=== PATIENT | female | born 2000 | race Caucasian/White ===

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

== ENCOUNTER 2021-02-17 14:31 | Outpatient (CLI) | payer OTHER, SELFPAY ==
[2021-02-17 15:00] LABS: Basophils % 0.5 %; Eosinophils # 0.1 10^3/uL (0.0-0.8); Eosinophils % 0.8 %; Hematocrit 41.2 % (37.0-47.0); Hemoglobin 13.6 g/dL (11.5-15.3); Lymphocytes # 2.8 10^3/uL (1.5-6.5); Lymphocytes % 47.4 %; Mean Corpuscular Hemoglobin 31.2 pg (28.0-34.0); Mean Corpuscular Volume 94.5 fl (81-99); Mean Platelet Volume 9.9 fL (7.4-10.4); Monocytes # 0.3 10^3/uL (0.2-0.9); Monocytes % 5.7 %; Neutrophils % 45.4 %; Nucleated Red Blood Cells % 0 %; Platelet Count 372 10^3/cmm (130-400); Red Blood Count 4.36 10^6/uL (4.1-5.3); Red Cell Distribution Width 11.3 % (12.1-15.1)
[2021-02-17 15:32] LABS: Free T4 Free Thyroxine 1.19 ng/dL (0.93-1.60); Thyroid Stimulating Hormone 0.74 uIU/mL (0.27-4.20)
[2021-02-17 15:33] LABS: HIV 1 & 2 Antibody Non-Reactive (Non-Reactiv); HIV 1 & 2 Antigen Non-Reactive (Non-Reactiv); Hepatitis C Virus Antibody Non-Reactive (Nonreactive); Rapid Plasma Reagin Syphilis Nonreactive (Nonreactive)
[2021-02-17 15:43] LABS: Alanine Aminotransferase 10 U/L (0-33); Alkaline Phosphatase 47 IU/L (35-105); Anion Gap 16.9 (5-19); Aspartate Amino Transferase 13 U/L (0-32); Blood Urea Nitrogen 5 mg/dL (6-20); Calcium 9.3 mg/dL (8.5-10.5); Carbon Dioxide 23 mmol/L (22-29); Chloride 100 mmol/L (98-107); Chol HDL Ratio 1.94 mg/dL (0.0-4.40); Cholesterol 122 mg/dL (0-200); Globulin 2.7 g/dL (1.3-4.6); Glomerular Filtration Rate 128.8 mL/min (90-130); Glucose 74 mg/dL (65-115); HDL Cholesterol 63 mg/dL (60-100); LDL Cholesterol Calculated 45 mg/dL (50-170); LDL HDL Ratio 0.71 RATIO (0.00-3.22); Osmolality Calculated 278 mOsm/kg (285-295); Potassium 3.9 mmol/L (3.5-5.1); Sodium 136 mmol/L (136-145); Total Bilirubin 0.5 mg/dL (0.15-1.2); Total Protein 7.7 g/dL (6.6-8.7); Triglycerides 69 mg/dL (0-150)
[2021-02-17 16:09] LABS: Estradiol 75.2 pg/mL; Follicle Stimulating Hormone 4.3 mIU/mL
== END 2021-02-17 14:32 | disposition home or self-care (01) ==
PROVIDERS: PCP Nurse Practitioner; Visit Provider Nurse Practitioner
DX: Z00.00 Encounter for general adult medical examination without abnormal findings (principal); N93.9 Abnormal uterine and vaginal bleeding, unspecified; Z76.89 Persons encountering health services in other specified circumstances
CPT/HCPCS: 80053; 80061; 81025; 82670; 83001; 84146; 84439; 84443; 84702; 85025; 86592; 86803; 87491; 87591; 87661; 87806

== ENCOUNTER 2021-02-25 10:15 | Outpatient (CLI) | payer OTHER, SELFPAY ==
[2021-02-25 11:24] LABS: Estradiol 154.5 pg/mL; Follicle Stimulating Hormone 2.1 mIU/mL; HCG Quantitative 87.68 mIU/mL; Prolactin 12.97 ng/mL (4.8-23.3)
== END 2021-02-25 10:16 | disposition home or self-care (01) ==
PROVIDERS: PCP Nurse Practitioner; Visit Provider Nurse Practitioner
DX: N93.9 Abnormal uterine and vaginal bleeding, unspecified (principal)
CPT/HCPCS: 36415; 82670; 83001; 84146; 84702

== ENCOUNTER 2021-03-14 14:23 | Emergency (ER) | payer OTHER, SELFPAY ==
[2021-03-14 14:37] VITALS: BP 112/73; PULSE 65; RESP 16; TEMP 36.8; O2SAT 100; BMI 22.2
--- NOTE | 2021-03-14 14:43 | PC.NURSE ---
Provided urine cup
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
[2021-03-14 18:34] VITALS: BP 111/54; PULSE 62; RESP 17; TEMP 36.8; O2SAT 100
[2021-03-14 18:42] LABS: Add Urine Microscopic? NO; Charge for UA Resulting for Rev
[2021-03-14 18:47] LABS: Blood Urine Neg (Negative); Glucose Urine UA Norm (Normal); Ketones Urine 3+ (Negative); Protein Urine Neg (Negative); Urine Appearance Clear (CLEAR); Urine Color Yellow (Yellow); pH Urine 5 (5-7)
[2021-03-14 18:48] LABS: Bilirubin Urine Neg (Negative); Leukocyte Esterase Urine Negative (Negative); Nitrate Urine Negative (Negative); Urobilinogen Urine Norm (Negative)
[2021-03-14 18:55] LABS: Basophils # 0.1 10^3/uL (0.0-0.1); Basophils % 0.9 %; Eosinophils # 0.1 10^3/uL (0.0-0.8); Eosinophils % 1.2 %; Hematocrit 38.2 % (37.0-47.0); Lymphocytes # 1.5 10^3/uL (1.5-6.5); Lymphocytes % 23.8 %; Mean Corpuscular Hemoglobin 31.6 pg (28.0-34.0); Mean Corpuscular Volume 92.9 fl (81-99); Mean Platelet Volume 9.9 fL (7.4-10.4); Monocytes # 0.6 10^3/uL (0.2-0.9); Monocytes % 8.9 %; Neutrophils # 4.18 10^3/uL (1.8-8.0); Neutrophils % 64.9 %; Nucleated Red Blood Cells % 0 %; Platelet Count 284 10^3/cmm (130-400); Red Blood Count 4.11 10^6/uL (4.1-5.3); White Blood Count 6.4 10^3/uL (4.5-13.0)
[2021-03-14] MEDS: sodium chloride 0.9% 1,000 ML 999 ML IV ×2 (19:14→20:22)
[2021-03-14 19:25] LABS: Alanine Aminotransferase 13 U/L (0-33); Albumin Level 4.5 g/dL (3.5-5.2); Alkaline Phosphatase 39 IU/L (35-105); Anion Gap 17.1 (5-19); Aspartate Amino Transferase 13 U/L (0-32); Blood Urea Nitrogen 6 mg/dL (6-20); Calcium 9.1 mg/dL (8.5-10.5); Carbon Dioxide 23 mmol/L (22-29); Chloride 100 mmol/L (98-107); Globulin 2.3 g/dL (1.3-4.6); Glomerular Filtration Rate 158.9 mL/min (90-130); Glucose 79 mg/dL (65-115); Osmolality Calculated 279 mOsm/kg (285-295); Potassium 4.1 mmol/L (3.5-5.1); Sodium 136 mmol/L (136-145); Total Bilirubin 0.4 mg/dL (0.15-1.2); Total Protein 6.8 g/dL (6.6-8.7)
[2021-03-14 20:16] VITALS: BP 100/61; PULSE 88; RESP 18; O2SAT 98
--- NOTE | 2021-03-14 20:22 | PC.NURSE ---
Pt resting, food and drink given
== END 2021-03-14 21:45 | disposition home or self-care (01) ==
PROVIDERS: Physician Assistant; Emergency Provider Emergency Medicine; PCP Nurse Practitioner
DX: O26.891 Other specified pregnancy related conditions, first trimester (principal); R11.2 Nausea with vomiting, unspecified; Z3A.01 Less than 8 weeks gestation of pregnancy; O99.331 Smoking (tobacco) complicating pregnancy, first trimester; F17.290 Nicotine dependence, other tobacco product, uncomplicated
CPT/HCPCS: 80053; 81003; 84702; 85025; 96360; 96361; 99283; J7030

== ENCOUNTER → 2021-03-17 16:29 | Outpatient (BNVA) | payer OTHER, SELFPAY | PROVIDERS: PCP Nurse Practitioner; Visit Provider Nurse Practitioner Women's Health | DX: Z34.90 Encounter for supervision of normal pregnancy, unspecified, unspecified trimester (principal); Z3A.01 Less than 8 weeks gestation of pregnancy | CPT/HCPCS: 76801; 76817 ==

== ENCOUNTER 2021-03-21 12:21 | Emergency (ER) | payer OTHER, SELFPAY ==
[2021-03-21 12:40] VITALS: BP 99/63; PULSE 63; RESP 16; TEMP 36.9; O2SAT 100; BMI 21.1
[2021-03-21 12:54] VITALS: BP 110/66; PULSE 58; RESP 18; TEMP 36.8; O2SAT 100
[2021-03-21 13:21] VITALS: BP 102/60; PULSE 58; RESP 17; O2SAT 100
[2021-03-21] MEDS: ondansetron 2 mg/ML SDV 2 mL 4 MG IVP (13:24)
[2021-03-21] MEDS: sodium chloride 0.9% 1,000 ML 999 ML IV (13:24)
[2021-03-21 13:39] LABS: Basophils % 0.7 %; Eosinophils % 0.5 %; Hematocrit 38.6 % (37.0-47.0); Hemoglobin 13.5 g/dL (11.5-15.3); Lymphocytes # 1.7 10^3/uL (1.5-6.5); Lymphocytes % 29.4 %; Mean Corpuscular Volume 91.5 fl (81-99); Mean Platelet Volume 9.8 fL (7.4-10.4); Monocytes # 0.4 10^3/uL (0.2-0.9); Monocytes % 6.8 %; Neutrophils # 3.67 10^3/uL (1.8-8.0); Neutrophils % 62.4 %; Nucleated Red Blood Cells % 0 %; Platelet Count 315 10^3/cmm (130-400); Red Blood Count 4.22 10^6/uL (4.1-5.3); White Blood Count 5.9 10^3/uL (4.5-13.0)
[2021-03-21 14:03] LABS: Specific Gravity, Urine 1.015 (1.005-1.030); Urine Appearance Cloudy (CLEAR); Urine Color Yellow (Yellow); pH Urine 9 (5-7)
[2021-03-21 14:04] LABS: Add Urine Culture? No; Add Urine Microscopic? YES; Amorphous Sediment Urine 2+ /hpf; Bacteria Urine TRACE /hpf; Bilirubin Urine Neg (Negative); Blood Urine Neg (Negative); Glucose Urine UA Norm (Normal); Ketones Urine 1+ (Negative); Leukocyte Esterase Urine Negative (Negative); Nitrate Urine Negative (Negative); Protein Urine Neg (Negative); Urobilinogen Urine Norm (Negative)
--- NOTE | 2021-03-21 14:11 | PC.NURSE ---
Pt PO challenge is Successful. Provider aware and pt is attempting to eat a cracker.
[2021-03-21 14:12] VITALS: BP 112/69; PULSE 65; RESP 17; O2SAT 100
[2021-03-21 14:14] LABS: Alanine Aminotransferase 9 U/L (0-33); Albumin Level 4.7 g/dL (3.5-5.2); Alkaline Phosphatase 37 IU/L (35-105); Anion Gap 14.9 (5-19); Aspartate Amino Transferase 10 U/L (0-32); Blood Urea Nitrogen 5 mg/dL (6-20); Calcium 8.5 mg/dL (8.5-10.5); Carbon Dioxide 24 mmol/L (22-29); Chloride 100 mmol/L (98-107); Globulin 2.2 g/dL (1.3-4.6); Glomerular Filtration Rate 205.6 mL/min (90-130); Glucose 80 mg/dL (65-115); Lipase 35 U/L (13-60); Osmolality Calculated 276 mOsm/kg (285-295); Potassium 3.9 mmol/L (3.5-5.1); Sodium 135 mmol/L (136-145); Total Bilirubin 0.6 mg/dL (0.15-1.2); Total Protein 6.9 g/dL (6.6-8.7)
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
[2021-03-21 15:17] VITALS: BP 108/64; PULSE 72; RESP 17; TEMP 36.7; O2SAT 99
== END 2021-03-21 15:18 | disposition home or self-care (01) ==
PROVIDERS: Emergency Provider Emergency Medicine; PCP Nurse Practitioner
DX: O26.91 Pregnancy related conditions, unspecified, first trimester (principal); R11.2 Nausea with vomiting, unspecified; O99.331 Smoking (tobacco) complicating pregnancy, first trimester; F17.290 Nicotine dependence, other tobacco product, uncomplicated; Z3A.01 Less than 8 weeks gestation of pregnancy
CPT/HCPCS: 80053; 81001; 83690; 84702; 85025; 96361; 96374; 96375; 99284; J2405; J3411; J7030

== ENCOUNTER 2021-03-29 11:48 | Emergency (ER) | payer OTHER, SELFPAY ==
[2021-03-29 12:01] VITALS: BP 111/73; PULSE 81; RESP 18; TEMP 36.1; O2SAT 98
[2021-03-29 12:34] LABS: Add Urine Microscopic? NO; Charge for UA Resulting for Rev
[2021-03-29 12:48] LABS: Urine Appearance Hazy (CLEAR); Urine Color Yellow (Yellow); pH Urine 7 (5-7)
[2021-03-29 12:52] LABS: Bilirubin Urine Neg (Negative); Blood Urine Neg (Negative); Glucose Urine UA Norm (Normal); Ketones Urine 1+ (Negative); Leukocyte Esterase Urine Negative (Negative); Nitrate Urine Negative (Negative); Protein Urine Neg (Negative); Urobilinogen Urine 1 mg/dL (Negative)
[2021-03-29 16:55] LABS: Basophils % 0.5 %; Eosinophils % 0.4 %; Hematocrit 40.3 % (37.0-47.0); Hemoglobin 13.3 g/dL (11.5-15.3); Lymphocytes % 24.1 %; Mean Corpuscular Hemoglobin 30.8 pg (28.0-34.0); Mean Corpuscular Volume 93.3 fl (81-99); Mean Platelet Volume 9.9 fL (7.4-10.4); Monocytes # 0.4 10^3/uL (0.2-0.9); Neutrophils # 5.72 10^3/uL (1.8-8.0); Neutrophils % 69.8 %; Nucleated Red Blood Cells % 0 %; Platelet Count 325 10^3/cmm (130-400); Red Blood Count 4.32 10^6/uL (4.1-5.3); Red Cell Distribution Width 11.1 % (12.1-15.1); White Blood Count 8.2 10^3/uL (4.5-13.0)
[2021-03-29 17:17] LABS: Alanine Aminotransferase 10 U/L (0-33); Albumin Level 4.8 g/dL (3.5-5.2); Alkaline Phosphatase 34 IU/L (35-105); Anion Gap 14.3 (5-19); Aspartate Amino Transferase 12 U/L (0-32); Blood Urea Nitrogen 6 mg/dL (6-20); Calcium 9.1 mg/dL (8.5-10.5); Carbon Dioxide 23 mmol/L (22-29); Chloride 104 mmol/L (98-107); Globulin 2.4 g/dL (1.3-4.6); Glomerular Filtration Rate 203.5 mL/min (90-130); Glucose 78 mg/dL (65-115); Osmolality Calculated 280 mOsm/kg (285-295); Potassium 4.3 mmol/L (3.5-5.1); Sodium 137 mmol/L (136-145); Total Bilirubin 0.5 mg/dL (0.15-1.2); Total Protein 7.2 g/dL (6.6-8.7)
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
[2021-03-29] MEDS: sodium chloride 0.9% 1,000 ML 999 ML IV (18:45)
[2021-03-29 19:38] VITALS: PULSE 78; RESP 16; O2SAT 98
== END 2021-03-29 19:40 | disposition home or self-care (01) ==
PROVIDERS: Physician Assistant; Emergency Provider Nurse Practitioner Family; PCP Nurse Practitioner
DX: O26.891 Other specified pregnancy related conditions, first trimester (principal); R11.2 Nausea with vomiting, unspecified; O99.331 Smoking (tobacco) complicating pregnancy, first trimester; F17.290 Nicotine dependence, other tobacco product, uncomplicated; Z3A.08 8 weeks gestation of pregnancy
CPT/HCPCS: 36415; 80053; 81003; 85025; 96360; 99283; J7030

== ENCOUNTER → 2021-04-06 11:37 | Outpatient (BNVA) | payer OTHER, SELFPAY | PROVIDERS: PCP Nurse Practitioner; Visit Provider Obstetrics & Gynecology | DX: O99.341 Other mental disorders complicating pregnancy, first trimester (principal); O21.9 Vomiting of pregnancy, unspecified; F32.A Depression, unspecified; F41.9 Anxiety disorder, unspecified; Z3A.09 9 weeks gestation of pregnancy | CPT/HCPCS: 80307; 84315; 84443; 85027; 86592; 86762; 86803; 86850; 86900; 87086; 87340; 87806 ==

== ENCOUNTER 2021-04-14 | Outpatient (CLI) | payer OTHER, SELFPAY | END 2021-04-14 00:01 | disposition home or self-care (01) | LOC: RAD 10-25 10:18 | PROVIDERS: PCP Nurse Practitioner; Visit Provider Nurse Practitioner | DX: R05.9 Cough, unspecified (principal) | CPT/HCPCS: 87400 ==

== ENCOUNTER → 2021-04-26 08:11 | Outpatient (BNVA) | payer OTHER, SELFPAY | PROVIDERS: PCP Nurse Practitioner; Visit Provider Obstetrics & Gynecology | DX: Z34.01 Encounter for supervision of normal first pregnancy, first trimester (principal); Z83.49 Family history of other endocrine, nutritional and metabolic diseases; F32.A Depression, unspecified; F41.9 Anxiety disorder, unspecified | CPT/HCPCS: 84315; 84439; 84443; 84481; 87491; 87591 ==

== ENCOUNTER → 2021-08-16 10:13 | Outpatient (BNVA) | payer OTHER, SELFPAY | PROVIDERS: PCP Nurse Practitioner; Visit Provider Obstetrics & Gynecology | DX: Z34.90 Encounter for supervision of normal pregnancy, unspecified, unspecified trimester (principal) | CPT/HCPCS: 82950; 84315; 84443; 85027 ==

== ENCOUNTER → 2021-08-26 08:24 | Outpatient (BNVA) | payer OTHER, SELFPAY | PROVIDERS: PCP Nurse Practitioner; Visit Provider Obstetrics & Gynecology | DX: Z34.90 Encounter for supervision of normal pregnancy, unspecified, unspecified trimester (principal) | CPT/HCPCS: 82951; 82952 ==

== ENCOUNTER → 2021-10-10 09:54 | Outpatient (BNVA) | payer OTHER, SELFPAY | PROVIDERS: PCP Nurse Practitioner; Visit Provider Obstetrics & Gynecology | DX: Z34.90 Encounter for supervision of normal pregnancy, unspecified, unspecified trimester (principal) | CPT/HCPCS: 84315; 87081 ==

== ENCOUNTER 2021-11-04 09:30 | Inpatient (IN) | payer OTHER, SELFPAY ==
[2021-11-03] VITALS (7 sets, daily range): BP systolic 104–134; BP diastolic 57–79; PULSE 67–93; TEMP 36.1; BMI 26.2
[2021-11-03] MEDS: dextrose 5%-lactated ringers 1,000 ML 999 ML IV ×2 (21:55→23:55)
[2021-11-04] VITALS (64 sets, daily range): BP systolic 90–139; BP diastolic 51–76; PULSE 51–82; RESP 14–17; TEMP 36.1–36.8; O2SAT 97–100
[2021-11-04 00:12] LABS: Basophils % 0.4 %; Eosinophils # 0.1 10^3/uL (0.0-0.8); Eosinophils % 0.6 %; Hematocrit 31.2 % (37.0-47.0); Hemoglobin 9.8 g/dL (11.5-15.3); Lymphocytes # 2.8 10^3/uL (1.5-6.5); Lymphocytes % 26.4 %; Mean Corpuscular HGB Conc 31.4 g/dL (30.0-36.0); Mean Corpuscular Hemoglobin 28.1 pg (28.0-34.0); Mean Corpuscular Volume 89.4 fl (81-99); Mean Platelet Volume 11.7 fL (7.4-10.4); Monocytes # 0.8 10^3/uL (0.2-0.9); Monocytes % 7.5 %; Neutrophils # 6.75 10^3/uL (1.8-8.0); Neutrophils % 64.4 %; Nucleated Red Blood Cells % 0 %; Platelet Count 303 10^3/cmm (130-400); Red Blood Count 3.49 10^6/uL (4.1-5.3); Red Cell Distribution Width 12.6 % (12.1-15.1); White Blood Count 10.5 10^3/uL (4.5-13.0)
[2021-11-04 00:31] LABS: Slide Review Slide Review Perform
[2021-11-04] MEDS: miSOPROStol 100 mcg tablet 25 MCG VAGINAL ×3 (01:18→10:05)
--- NOTE | 2021-11-04 11:14 | PM.OPHPUD ---
Labor & Delivery H&P Update Date of Procedure: November 04, 2021 Date H&P Performed: 11/01/21 H&P update information: I have reviewed H&P completed within last 30 days, I have examined patient prior to procedure and No changes to prior documentation Changes to previous documentation: The patient is here for induction at term. IUP@ [id number]. Cervix 3 Will do cytotec induction, then transfer to [facility]. Admission Diagnosis: Related Problem List Diagnoses (1) Anemia affecting in third trimester: (2) Tobacco use affecting , antepartum: (3) Supervision of normal : (4) Anxiety and depression:
[2021-11-04] MEDS: fentaNYL 50 mcg/mL INJ 2mL IVP ×6 (11:52→21:24)
[2021-11-04] MEDS: hyDROXYzine 25 mg Capsule 50 MG PO (11:53)
[2021-11-04] MEDS: acetaminophen 325 mg Tablet 650 MG PO (11:53)
[2021-11-04] MEDS: oxytocin 30 UNIT/500 ML BAG IV (15:00)
[2021-11-04] MEDS: dextrose 5%-lactated ringers 1,000 ML 125 ML IV (15:03)
[2021-11-04] MEDS: lactated ringers 1,000 ML 999 ML IV ×2 (21:30→21:41)
--- NOTE | 2021-11-04 22:33 | ANES.PREANE2 ---
Pre-Anesthetic Assessment Height/Weight: Height 1.7 m Weight 75.75 kg Temp Pulse Resp BP Pulse Ox 98.2 F 58 L 15 128/71 100 11/04/21 17:00 11/04/21 22:28 11/04/21 21:24 11/04/21 22:28 11/04/21 22:28 Medications/Allergies Home Medications Medication Instructions Recorded Confirmed Last Taken Type ferrous sulfate 325 mg (65 mg 325 mg PO BID #90 tab 08/17/21 11/04/21 11/01/21 Rx iron) tablet,delayed release breast pump (Pump In Style #1 ea 08/29/21 11/01/21 Unknown Rx Advanced) prenat.vits,arvind,lnp-axvo-hiovg 1 tab PO DAILY 08/29/21 11/04/21 11/01/21 History Allergies Allergy/AdvReac Type Severity Reaction Status Date / Time No Known Allergies Allergy Verified 11/01/21 10:06 Current Medications Generic Name Dose Route Start Last Admin Trade Name Freq PRN Reason Stop Dose Admin Acetaminophen 650 mg 11/03/21 23:50 11/04/21 11:53 Acetaminophen 325 Mg Tablet PO 650 mg Q6H PRN Administration Mild pain or temp > 100.4 Fentanyl 25 - 100 mcg 11/03/21 23:50 11/04/21 21:24 Fentanyl 50 Mcg/Ml Inj 2ml IVP 100 mcg Q1H PRN Administration SEVERE PAIN Hydroxyzine Pamoate 50 mg 11/03/21 23:50 11/04/21 11:53 Hydroxyzine 25 Mg Capsule PO 50 mg QID PRN Administration sleep, agitation or itching Dextrose/Lactated Ringer's 1,000 mls @ 125 mls/hr 11/03/21 23:45 11/04/21 17:07 Dextrose 5%-Lactated Ringers IV 125 mls/hr .Q8H [facility] Infusion Oxytocin 30 unit in 500 mls @ 1 mls/hr 11/04/21 14:15 11/04/21 18:02 Pitocin IV 10 milliunit/min .Q24H LAXMI 10 mls/hr Titration Protocol 1 MILLIUNIT/MIN Ropivacaine 200 mg in 100 mls @ 13 mls/hr 11/04/21 18:30 11/04/21 19:59 Naropin Premix EPIDURAL Not Given .Q7H42M [facility] Anesthesia Medical History Anxiety and depression Diagnosed in 2017 and initially was on medication-does not remember the name. Has not been on any medication since 2018 and feels like it was job-related. Irregular menstrual cycle History of irregular cycles--reassess No pertinent past medical history Denies diabetes, asthma, hypertension, seizures, DVT/PE PCP: Janeth Corrales Surgical History No pertinent past surgical history Family History Grandmother Colon cancer Maternal--dx age 60's Stroke paternal Father Diabetes Hypertension Denies family history of Ovarian cancer Heart disease Hypercholesteremia Thyroid disease Female Reproductive History Date of last menstrual period: 01/30/21 : 1 Spontaneous abortions: No Data Anesthesia : 11/03/21 20:50 Short CBC 11/03/21 Range/Units 20:50 WBC 10.5 (4.5-13.0) 10^3/uL Hgb 9.8 L (11.5-15.3) g/dL Hct 31.2 L (37.0-47.0) % MCV 89.4 (81-99) fl Plt Count 303 (130-400) 10^3/cmm Neut % (Auto) 64.4 % Neut # (Auto) 6.75 (1.8-8.0) 10^3/uL Cardiac Studies: No Data to Display Anesthesia Procedures Epidural Time Out Performed: Yes Consents Signed: Procedure Consent Consent: requested by attending/covering physician, from patient, risks and benefits reviewed and patient agrees to proceed Lumbar Level: L2-L3 Epidural position: sitting Epidural procedure: sterile prep of area, 1% lidocaine to numb the area, 18 g needle, neg for paresthesia, test dose given, 1.5% xylocaine 1:200k epi (5cc), 0.2% Ropivacaine bolus ml (4cc and Fentanyl 100mcg), no systemic response, sterile dressing applied, L.U.D. no apparent complications and 0.2% Ropiavacaine @ mls/hr (13cc/hour. VLAD at 6cm. Cath placed 3 cm into epid space. Pt tolerated well)
--- NOTE | 2021-11-04 22:36 | ANES.PREANE2 ---
Pre-Anesthetic Assessment Height/Weight: Height 1.7 m Weight 75.75 kg Temp Pulse Resp BP Pulse Ox 98.2 F 82 15 132/58 100 11/04/21 17:00 11/04/21 22:32 11/04/21 21:24 11/04/21 22:32 11/04/21 22:28 Preop Diagnosis: Labor pain DESTIN Was Beta Linsey taken within 24 hours: N/A Was Clonidine taken within 24 hours: N/A Social No alcohol and No tobacco Exam alert, oriented x 3, clear to auscultation bilaterally and regular rate & rhythm Airway Submandibular: within normal limits Cervical ROM: within normal limits Mallampati: Class II Dentition: full Pulmonary None reported CV/HEM None reported None reported Hepatic None reported GI None reported Metabolic None reported Musc/skel None reported Neuropsych None reported Anesthetic Plan ASA status: 2 Anesthesia: Anesthesia Evaluation and Regional (specify below) (DESTIN) Risk of > 500 ml blood loss (7ml/kg in children): No Medications/Allergies Home Medications Medication Instructions Recorded Confirmed Last Taken Type ferrous sulfate 325 mg (65 mg 325 mg PO BID #90 tab 08/17/21 11/04/21 11/01/21 Rx iron) tablet,delayed release breast pump (Pump In Style #1 ea 08/29/21 11/01/21 Unknown Rx Advanced) prenat.vits,arvind,izs-aklo-bafuj 1 tab PO DAILY 08/29/21 11/04/21 11/01/21 History Allergies Allergy/AdvReac Type Severity Reaction Status Date / Time No Known Allergies Allergy Verified 11/01/21 10:06 Current Medications Generic Name Dose Route Start Last Admin Trade Name Johanna PRN Reason Stop Dose Admin Acetaminophen 650 mg 11/03/21 23:50 11/04/21 11:53 Acetaminophen 325 Mg Tablet PO 650 mg Q6H PRN Administration Mild pain or temp > 100.4 Fentanyl 25 - 100 mcg 11/03/21 23:50 11/04/21 21:24 Fentanyl 50 Mcg/Ml Inj 2ml IVP 100 mcg Q1H PRN Administration SEVERE PAIN Hydroxyzine Pamoate 50 mg 11/03/21 23:50 11/04/21 11:53 Hydroxyzine 25 Mg Capsule PO 50 mg QID PRN Administration sleep, agitation or itching Dextrose/Lactated Ringer's 1,000 mls @ 125 mls/hr 11/03/21 23:45 11/04/21 17:07 Dextrose 5%-Lactated Ringers IV 125 mls/hr .Q8H LAXMI Infusion Oxytocin 30 unit in 500 mls @ 1 mls/hr 11/04/21 14:15 11/04/21 18:02 Pitocin IV 10 milliunit/min .Q24H LAMXI 10 mls/hr Titration Protocol 1 MILLIUNIT/MIN Ropivacaine 200 mg in 100 mls @ 13 mls/hr 11/04/21 18:30 11/04/21 19:59 Naropin Premix EPIDURAL Not Given .Q7H42M LAXMI PFSH Anesthesia Medical History Anxiety and depression Diagnosed in 2017 and initially was on medication-does not remember the name. Has not been on any medication since 2018 and feels like it was job-related. Irregular menstrual cycle History of irregular cycles--reassess No pertinent past medical history Denies diabetes, asthma, hypertension, seizures, DVT/PE PCP: Janeth Corrales Surgical History No pertinent past surgical history Family History Grandmother Colon cancer Maternal--dx age 60's Stroke paternal Father Diabetes Hypertension Denies family history of Ovarian cancer Heart disease Hypercholesteremia Thyroid disease Female Reproductive History Date of last menstrual period: 01/30/21 : 1 Spontaneous abortions: No Data Anesthesia : 11/03/21 20:50 Short CBC 11/03/21 Range/Units 20:50 WBC 10.5 (4.5-13.0) 10^3/uL Hgb 9.8 L (11.5-15.3) g/dL Hct 31.2 L (37.0-47.0) % MCV 89.4 (81-99) fl Plt Count 303 (130-400) 10^3/cmm Neut % (Auto) 64.4 % Neut # (Auto) 6.75 (1.8-8.0) 10^3/uL Cardiac Studies: No Data to Display
--- NOTE | 2021-11-04 22:48 | ANES.PROC ---
Anesthesia Procedures Procedure/Date: 11/04/21 Other Information: Pt given Ephedrine 10mg for marginal BP and deceleration. BP improved and situation resolved
[2021-11-05] VITALS (34 sets, daily range): BP systolic 104–144; BP diastolic 56–87; PULSE 56–91; RESP 14–16; TEMP 36.6–37; O2SAT 99–100
[2021-11-05] MEDS: lactated ringers 1,000 ML 999 ML IV (00:57)
--- NOTE | 2021-11-05 01:21 | P.PCNOB_ITS ---
Delivery Note: Date of delivery: November 05, 2021 Pre-delivery diagnoses: Term Post-delivery diagnoses: Term delivered Procedure: A spontaneous vaginal delivery Delivering Physician: Virgil Sosa MD Estimated blood loss (mL): 300 Delivery: The patient was noted to be complete and pushing, so was placed in the dorsal lithotomy position, prepped and draped in the usual sterile fashion for a vaginal delivery. Pt. Noted to have epidural anesthesia. At 0102 the patient delivered a viable term female weighing 3965g with scores of 8 and 9 at one and five minutes, respectively. The vertex was delivered spontaneously over intact perineum. The patient was asked to push and the head delivered spontaneously in the LUPILLO position, over an intact perineum. A nuchal cord was checked and none noted. The anterior shoulder delivered easily and the posterior shoulder followed. The remainder of the was easily delivered and the oropharynx and nasopharynx was bulb suctioned. The infant was noted to have spontaneous cry and spontaneous movement of all four extremities. The cord was clamped x 2 and cut and noted to have 2 arteries and one vein. The infant was passed to the mother's abdomen where nursing personnel were in attendance. The placenta delivered intact spontaneously and the uterus was explored. 20 units of Pitocin was placed in the IV bag to firm the uterus. Examination of the cervix and vaginal vault did not reveal any lacerations. A vaginal pack was then placed. Examination of the perineum showed first-degree laceration. The laceration was repaired with 3-0 Vicryl in the normal fashion in a running non locking fashion to reapproximate the laceration in layers. The vaginal pack was then removed. The patient tolerated this procedure well, and recovered in L&D with her infant in their LDR room. All sponge and needle counts were correct. History History History 1 Term Miscarriages/Ectopic Living Children 0 Coding Level of Care Code Acute Inspector Water Pollution Control for Chg Bang
[2021-11-05] MEDS: lidocaine 2% INJ 20 mL INJECTION (01:40)
[2021-11-05] MEDS: lanolin oint 7 gm 1 APPLIC TOPICAL (02:12)
[2021-11-05] MEDS: benzocaine-menthol 78 gm Canister 1 SPRAY TOPICAL (02:12)
[2021-11-05] MEDS: docusate sodium 100 mg Capsule PO (08:22)
[2021-11-05] MEDS: prenatal vitamin Capsule 1 CAP PO (08:22)
[2021-11-05] MEDS: ibuprofen 800 mg tablet PO ×3 (08:23→21:27)
--- NOTE | 2021-11-05 08:53 | ANE.PACU2 ---
Inpatient post-anesthesia follow up: Airway intact: Yes Vital signs: Temperature 98.6 F Pulse Rate 72 Respiratory Rate 16 Blood Pressure 114/70 Pulse Oximetry 99 Oxygen Delivery Me thod Room Air Oxygen Flow Rate 10 Fraction of Inspir ed Oxygen Hydration adequate: Yes Nausea and vomiting: No Pain level: 2 Mental status: Baseline
[2021-11-05 14:13] LABS: Hematocrit 26.7 % (37.0-47.0); Hemoglobin 8.5 g/dL (11.5-15.3); Mean Corpuscular HGB Conc 31.8 g/dL (30.0-36.0); Mean Corpuscular Hemoglobin 28.2 pg (28.0-34.0); Mean Corpuscular Volume 88.7 fl (81-99); Mean Platelet Volume 10.8 fL (7.4-10.4); Platelet Count 281 10^3/cmm (130-400); Red Blood Count 3.01 10^6/uL (4.1-5.3); Red Cell Distribution Width 12.6 % (12.1-15.1); White Blood Count 14.9 10^3/uL (4.5-13.0)
[2021-11-06 05:13] VITALS: BP 116/75; PULSE 76; O2SAT 98
[2021-11-06] MEDS: docusate sodium 100 mg Capsule PO (09:47)
[2021-11-06] MEDS: ibuprofen 800 mg tablet PO (09:47)
[2021-11-06] MEDS: prenatal vitamin Capsule 1 CAP PO (09:47)
[2021-11-06 09:52] VITALS: BP 116/71; RESP 16; TEMP 36.6
--- NOTE | 2021-11-06 14:02 | PM.OBGYDC ---
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 Date of Admission: 11/04/21 09:30 Date of Discharge: 11/06/21 Attending Provider at Admission: Maki Benoit MD Attending Provider at Discharge: Virgil Sosa MD Primary Care Provider: GLADIS Mendoza Diagnoses at Discharge Discharge Diagnosis (1) Anemia affecting in third trimester: Status: Acute (2) Tobacco use affecting , antepartum: Status: Acute (3) Supervision of normal : Status: Acute Qualifiers: Normal : normal first Trimester: second trimester Qualified Code(s): Z34.02 - Encounter for supervision of normal first , second trimester (4) Anxiety and depression: Status: Acute Permanent problem details: Diagnosed in 2017 and initially was on medication-does not remember the name. Has not been on any medication since 2018 and feels like it was job-related. Reason for Visit Reason for Visit: induction Hospital Course Hospital Course Mrs. Dixon 21-year-old female with a term admitted for elective induction. She progressed to have a spontaneous vaginal delivery without complications. Infant was noticed to have a cardiac arrhythmia and relocation associate came in for evaluation. She delivered viable term female weighing 3965g with scores of 8 and 9. Her observation recovery has been uneventful. She is status post spontaneous vaginal delivery day 1. Refer will be planning for vasectomy for contraception. Information Peripartum Data: Infant Delivery Method: Vaginal Physical Exam Narrative: GA; alert and oriented x 3 HEENT: normal Breasts: engorged Nipples - skin intact Lungs; clear to auscultation Heart: regular rhythm, no murmurs. Abd: Appropriately tender. BS+. Uterine fundus below umbilicus. No Fundal Tenderness. Perineum: normal lochia. Extremities: no edema, no cyanosis, no tenderness. Urinary Catheter Management: Trivedi: Cath Placed During This Visit: yes, but has since been removed by the nurse Reason for Continuing Indwelling Catheter: Decision to DC Catheter Urinary Catheter Date of Insertion: 11/04/21 Urinary Catheter Time of Insertion: 23:41 Date Urinary Catheter Removed: 11/05/21 Time Urinary Catheter Discontinued: 00:57 History History History 1 Term Miscarriages/Ectopic Living Children 0 Discharge Data Studies Completed and Pending Laboratory Results WBC 14.9 10^3/uL (4.5-13.0) H 11/05/21 14:00 RBC 3.01 10^6/uL (4.1-5.3) L 11/05/21 14:00 Hgb 8.5 g/dL (11.5-15.3) L 11/05/21 14:00 Hct 26.7 % (37.0-47.0) L 11/05/21 14:00 MCV 88.7 fl (81-99) 11/05/21 14:00 MCH 28.2 pg (28.0-34.0) 11/05/21 14:00 MCHC 31.8 g/dL (30.0-36.0) 11/05/21 14:00 RDW 12.6 % (12.1-15.1) 11/05/21 14:00 Plt Count 281 10^3/cmm (130-400) 11/05/21 14:00 MPV 10.8 fL (7.4-10.4) H 11/05/21 14:00 Neut % (Auto) 64.4 % 11/03/21 20:50 Lymph % (Auto) 26.4 % 11/03/21 20:50 [place] % (Auto) 7.5 % 11/03/21 20:50 Eos % (Auto) 0.6 % 11/03/21 20:50 Baso % (Auto) 0.4 % 11/03/21 20:50 Neut # (Auto) 6.75 10^3/uL (1.8-8.0) 11/03/21 20:50 Lymph # (Auto) 2.8 10^3/uL (1.5-6.5) 11/03/21 20:50 [place] # (Auto) 0.8 10^3/uL (0.2-0.9) 11/03/21 20:50 Eos # (Auto) 0.1 10^3/uL (0.0-0.8) 11/03/21 20:50 Baso # (Auto) 0.0 10^3/uL (0.0-0.1) 11/03/21 20:50 Nucleated RBC % (auto) 0 % 11/03/21 20:50 Nucleated RBCs # 0.0 /100WBC 11/03/21 20:50 Vitals Last Vital Signs Temp 97.8 F 11/06/21 09:52 Pulse 76 11/06/21 05:13 Resp 16 11/06/21 09:52 BP 116/71 11/06/21 09:52 Pulse Ox 98 11/06/21 05:13 Discharge Plan Discharge Patient Disposition: Home Condition: Stable Prescriptions: New acetaminophen 325 mg capsule 325 mg PO Q4H PRN (Reason: fever or pain) Qty: 60 0RF docusate sodium [Colace] 100 mg capsule 100 mg PO BID Qty: 60 0RF ferrous sulfate [Iron (ferrous sulfate)] 325 mg (65 mg iron) tablet 325 mg PO BID Qty: 60 2RF ibuprofen 800 mg tablet 800 mg PO TID PRN (Reason: pain) Qty: 60 0RF Continued prenat.vits,arvind,vyn-amgd-sqwna Tablet 1 tab PO DAILY 0RF (DME) breast pump [Pump In Style Advanced] Device See Rx Instructions .ROUTE .MEDSUPPLY Qty: 1 0RF Rx Instructions: As directed ferrous sulfate 325 mg (65 mg iron) tablet,delayed release (DR/EC) 325 mg PO BID Qty: 90 1RF Discharge Orders: Discharge Order (Routine); Ordered 11/06/21 Ordered By: Virgil Sosa Referrals: Zara Wilson MD [Physician] - 6 Weeks Discharge Diet: Usual diet Discharge Activity: Limit activity as instructed Patient Instructions: Opioid Safety, Vaginal Delivery (GEN), Bleeding (GEN), Caring for Your Baby (GEN), Your 's Appearance (GEN) Activity Restrictions/Additional Instructions: 1. Please call [facility] on next working day to make your appointment in 6 weeks. 2. Please stay home until you come back to the clinic on first post-operative check up. 3. Please follow instructions on your medications CAREFULLY. 4. If you have abdominal incision, do not cover it unless dressing is necessary because of drainage. OK to shower, but avoid bath. Leave steri-strips until they fall off. If they are still on one week after surgery, you may remove them. 5. If you had vaginal surgery or vaginal repair, Dr. Sosa may instruct you to take SITZ bath. 6. Yellow, blood tinged odorous vaginal discharge is usually normal after hysterectomy or vaginal surgeries. 7. No sexual intercourse, tampons, or douches until you are completely released from the post-operative care. 8. Avoid constipation by eating right and maybe using some Metamucil or Milk of Magnesia. 9. All prescription refills are given during the working hours. Please do no wait till it runs out. Call the clinic at [phone] before your medication runs out. The clinic will get in touch with your doctor to prescribe medications if necessary. 10. Please remain within 40 mile radius from our hospital because emergencies do happen now and then during the post-operative period. 11. If you have stairs at home, take one step at a time slowly and minimize the number of trips. It helps to stay in one floor for the next few days. No lifting except what you can lift by one hand until you are released from the post-operative care. 12. Driving is discouraged until you are well healed. It may be 3-4 weeks before you feel strong enough to drive. You should be able to turn and look through the rear window without pain and you should be able to push the brake pedal very hard without pain before you drive. No fast rules, but SAFETY should be your primary concern. DO NOT drive if you are on sedating medications such as narcotics. 13. Call the clinic (during working hours) to make urgent appointment or go to the Emergency room, if any of the following occurs: i. Vaginal bleeding becomes heavy, more than a period. ii. Incision becomes red and sore, or drains pus. iii. Your temperature is over 100.4 or you have chill. iv. IV site becomes red and swollen (a little ``knot?? is usually OK) v. Persistent nausea and vomiting vi. Persistent constipation or diarrhea vii. Rash or allergic reaction to medications. 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
[2021-11-06 15:00] VITALS: BP 116/64; PULSE 84; RESP 17; TEMP 36.6
[2021-11-06 16:21] VITALS: BP 116/64; PULSE 84; RESP 17; TEMP 36.6
== END 2021-11-06 15:10 | disposition home or self-care (01) | DRG 807 ==
LOC: OPOB 09:32 → OBGYN 09:32
PROVIDERS: Obstetrics & Gynecology; Admitting Provider Obstetrics & Gynecology; PCP Nurse Practitioner; Visit Provider Obstetrics & Gynecology
DX: O99.344 Other mental disorders complicating childbirth (principal); Z37.0 Single live birth; O34.83 Maternal care for other abnormalities of pelvic organs, third trimester; N83.202 Unspecified ovarian cyst, left side; O99.02 Anemia complicating childbirth; D64.9 Anemia, unspecified; O70.0 First degree perineal laceration during delivery; O99.334 Smoking (tobacco) complicating childbirth; F17.290 Nicotine dependence, other tobacco product, uncomplicated; Z3A.39 39 weeks gestation of pregnancy; F41.8 Other specified anxiety disorders
CPT/HCPCS: 36415; 51702; 59025; 59409; 85025; 85027; 96374; 96376; J2370; J2795; J3010

== ENCOUNTER → 2022-02-07 09:22 | Outpatient (BNVA) | payer OTHER, SELFPAY | PROVIDERS: PCP Nurse Practitioner; Visit Provider Nurse Practitioner | DX: J02.9 Acute pharyngitis, unspecified (principal) | CPT/HCPCS: 87070; 87486; 87581; 87633; 87880 ==

== ENCOUNTER → 2022-03-29 16:10 | Outpatient (BNVA) | payer BC, SELFPAY | PROVIDERS: PCP Nurse Practitioner; Visit Provider Registered Nurse Neonatal Intensive Care | DX: N39.0 Urinary tract infection, site not specified (principal); R39.9 Unspecified symptoms and signs involving the genitourinary system | CPT/HCPCS: 81000; 87086 ==

== ENCOUNTER 2022-08-17 12:29 | Emergency (ER) | payer BC, SELFPAY ==
[2022-08-17 12:40] VITALS: BP 119/73; PULSE 76; RESP 18; TEMP 36.5; O2SAT 98
--- NOTE | 2022-08-17 12:55 | W.ED.GENADLT ---
HPI - General Adult General: Chief complaint: Abdominal Pain Stated complaint: abd pains/dx of ovary cyst Time Seen by Provider: 08/17/22 12:44 History of Present Illness: Patient with a history of a left-sided (not right-sided as documented in triage note) ovarian cyst diagnosed on 20-week ultrasound on 06/20/2021 presents to the emergency department with complaint of right lower quadrant pelvic pain x2 weeks getting worse. Patient describes the pain as muscle hardening in the right lower quadrant that radiates to the suprapubic region and left lower quadrant with associated stabbing pain. She denies any fevers, chills, nausea, vomiting, diarrhea, anorexia, dysuria, urinary urgency. However she does endorse urinary frequency, as well as vaginal bleeding and discharge. She states that she had a normal period in June but in July had a short period lasting only 3 days that started on 08/11. It was also unusual because instead of being a normal dark red it was brown and light pink, and more web architect and more infrequent than usual. Patient denies any fevers or chills. No other modifying factors, no other associated symptoms. Review of Systems General: Reports: 10 or more systems reviewed and unremarkable except in HPI and below PFSH ED PFSH: Medical History Anxiety and depression Diagnosed in 2017 and initially was on medication-does not remember the name. Has not been on any medication since 2018 and feels like it was job-related. Irregular menstrual cycle History of irregular cycles--reassess No pertinent past medical history Denies diabetes, asthma, hypertension, seizures, DVT/PE PCP: Janeth Corrales Surgical History No pertinent past surgical history Family History Grandmother Colon cancer Maternal--dx age 60's Stroke paternal Father Diabetes Hypertension Denies family history of Ovarian cancer Heart disease Hypercholesteremia Thyroid disease Social History Substance/Drug Use: never Female Reproductive History: Spontaneous abortions: No Physical Exam Const: COMMON NORMALS: no acute distress and patient oriented x3 GENERAL APPEARANCE: cooperative and well kempt ORIENTATION/CONSCIOUSNESS: Yes awake HENMT: COMMON NORMALS: normocephalic, atraumatic, hearing grossly normal bilaterally, external ears normal and Normal external nose present HEAD & SCALP: normocephalic and atraumatic FACE & SINUS: normal facial exam NOSE: Normal external nose present EXTERNAL EAR: Yes external ears normal MOUTH: Normal oral and palatal mucosa present THROAT: posterior oropharynx normal Eye: COMMON NORMALS: Equal, round and reactive pupils present and EOMs intact bilaterally PUPIL: Yes Equal, round and reactive pupils present Neck/C-Spine: COMMON NORMALS: supple GENERAL: Yes normal visual inspection CERVICAL SPINE: No Cervical spine tenderness and No step off deformity Chest: COMMONS NORMALS: normal inspection of the chest Resp: COMMON NORMALS: normal respiratory effort, No retractions, No use of accessory muscles and clear to auscultation bilaterally AUSCULTATION: clear to auscultation bilaterally Cardio: COMMON NORMALS: regular rate and Peripheral pulses 2+ throughout RATE: regular rate PERIPHERAL PULSES: Peripheral pulses 2+ throughout GI: COMMON NORMALS: Normal to inspection, nondistended, normoactive bowel sounds present and Soft to palpation PALPATION: Yes Soft to palpation, No Firmness to palpation present (GI), Yes Tenderness to palpation present (GI) Details: LLQ (Very mild), RLQ (Mild) and other (Moderate suprapubic), No Guarding due to palpation present (GI) and No Rigid due to palpation : COMMON NORMALS: Yes no CVA tenderness and Yes normal bimanual exam BLADDER/KIDNEY EXAM: Yes no CVA tenderness EXTERNAL FEMALE EXAM: Yes normal appearance of the urethra SPECULUM EXAM - VAGINA: No laceration, No vaginal bleeding, No tissue present in vagina and Yes Vaginal discharge present Vaginal discharge present: white and yellow SPECULUM EXAM - CERVIX: Yes Patulous cervix present, Yes Cervical os closed, No Tissue present in the cervical os, No Cervical bleeding, Yes Abnormal cervical discharge present yellow and white, No IUD string present, No Cervical laceration present and No Cervical tenderness present BIMANUAL EXAM - VAGINA & UTERUS: Yes normal bimanual exam, Yes normal palpation, No cervical motion tenderness, No Cervical tenderness present and No non-tender BIMANUAL EXAM - ADNEXA, OTHER: Yes normal adnexae and No tender OB/EXTERNAL & SPECULUM: no tissue noted in vagina and vaginal bleeding OTHER: Female nurse coordinator of health services present for entire examination Back/Pelvis: COMMON NORMALS: no CVA tenderness and thoracic and lumbar spine normal to inspection THORACIC SPINE/UPPER BACK: Yes normal to inspection LUMBAR SPINE/LOWER BACK: Yes normal to inspection Extremity: COMMON NORMALS: normal to inspection and full ROM GENERAL: No clubbing and No cyanosis Neuro: COMMON NORMALS: patient oriented x3, moves all extremities, no focal motor deficits and no sensory deficits noted Psych: COMMON NORMALS: mental status grossly normal, Normal thought process present, cooperative and activity/motor behavior normal APPEARANCE: Yes well kempt ATTITUDE: Yes calm THOUGHT PROCESS: Normal thought process present Skin: COMMON NORMALS: no rashes or lesions noted GENERAL SKIN EXAM: no rashes or lesions noted Course ED course: Pelvic exam concerning for GC or chlamydia, no concern for PID as patient has no cervical motion tenderness or adnexal tenderness. Patient denies any new sexual partners. She was advised of the importance of abstaining from sexual intercourse for 7 days and having all sexual partners tested and treated. Given questionable compliance will treat with IM Rocephin, p.o. azithromycin here, as well as 7 days of p.o. Doxy. Patient advised to follow-up as directed, return to the emergency department with any new or worsening symptoms or if unable to follow-up as directed or tolerate p.o. intake. Patient verbalized understanding and agreement with this plan, all questions answered. Vital Signs: Vital signs: Vital Signs Temperature 97.7 F 08/17/22 12:40 Pulse Rate 76 08/17/22 12:40 Respiratory Rate 18 08/17/22 12:40 Blood Pressure 119/73 08/17/22 12:40 Pulse Oximetry 98 08/17/22 12:40 Oxygen Delivery Me thod Room Air 08/17/22 12:40 MDM - General Adult Medical Decision Making DVTThis likely represents UTI, yeast vaginitis, or STI. Ectopic can easily be excluded with a urine test. Ovarian torsion is unlikely given the patient's ongoing symptoms for 2 weeks, as well as her bilateral symptoms, urinary symptoms, and vaginal discharge. Appendicitis or other intra-abdominal process is highly unlikely given the patient's lack of other systemic or GI symptoms. Will perform pelvic exam with female nurse coordinator of health services with swabs to further narrow differential diagnosis. Additionally UA and urine hCG have been ordered. Lab Data Laboratory Results HCG, Qual Negative (Negative) 08/17/22 12:55 Urine Color Yellow (Yellow) 08/17/22 12:55 Urine Appearance Clear (CLEAR) 08/17/22 12:55 Urine pH 7 (5-7) 08/17/22 12:55 Ur Specific [place] 1.015 (1.005-1.030) 08/17/22 12:55 Urine Protein Neg (Negative) 08/17/22 12:55 Urine Glucose (UA) Norm (Normal) 08/17/22 12:55 Urine Ketones Negative (Negative) 08/17/22 12:55 Urine Blood Neg (Negative) 08/17/22 12:55 Urine Nitrate Negative (Negative) 08/17/22 12:55 Urine Bilirubin Neg (Negative) 08/17/22 12:55 Urine Urobilinogen Norm mg/dL (Negative) 08/17/22 12:55 Ur Leukocyte Esterase Negative (Negative) 08/17/22 12:55 Discharge Plan Discharge Patient Disposition: Home Clinical Impression: Cervicitis, STI (sexually transmitted infection) Condition: Stable Prescriptions: New doxycycline monohydrate 100 mg capsule 100 mg PO BID 7 Days Qty: 14 0RF No Action escitalopram oxalate 20 mg tablet 20 mg PO DAILY sulfamethoxazole-trimethoprim [Bactrim DS] 800-160 mg tablet 1 tab PO BID 7 Days Qty: 14 0RF Discharge Orders: Discharge ED (Routine); Ordered 08/17/22 Ordered By: Satish Barrios Referrals: Jamari Ashton MD [Primary Care Provider] - 1-3 days Patient Instructions: Cervicitis (ED), Sexually Transmitted Diseases (ED) Coding Level of Care Code ED Front End Ui Developer for Nahomi Cuenca
[2022-08-17 13:08] LABS: Add Urine Microscopic? NO; Charge for UA Resulting for Rev
[2022-08-17 13:19] LABS: Bilirubin Urine Neg (Negative); Blood Urine Neg (Negative); Glucose Urine UA Norm (Normal); HCG Qualitative Urine. Negative (Negative); Ketones Urine Negative (Negative); Leukocyte Esterase Urine Negative (Negative); Nitrate Urine Negative (Negative); Protein Urine Neg (Negative); Specific Gravity, Urine 1.015 (1.005-1.030); Urine Appearance Clear (CLEAR); Urine Color Yellow (Yellow); Urobilinogen Urine Norm (Negative); pH Urine 7 (5-7)
[2022-08-17] MEDS: azithromycin 250 mg Tablet 1000 MG PO (13:33)
[2022-08-17] MEDS: cefTRIAXone 500 MG in water for injection-sterile 1 ML IM (13:34)
[2022-08-17 13:43] VITALS: PULSE 69; RESP 18; O2SAT 100
[2022-08-17 13:54] VITALS: PULSE 69; RESP 18; O2SAT 100
== END 2022-08-17 13:55 | disposition home or self-care (01) ==
PROVIDERS: Emergency Provider Emergency Medicine; PCP Family Medicine
DX: O98.313 Other infections with a predominantly sexual mode of transmission complicating pregnancy, third trimester (principal); O23.513 Infections of cervix in pregnancy, third trimester; Z3A.29 29 weeks gestation of pregnancy
CPT/HCPCS: 81003; 81025; 87210; 87491; 87591; 96372; 99284; J0696; Q0144

== ENCOUNTER → 2022-09-11 08:34 | Outpatient (BNVA) | payer BC, SELFPAY | PROVIDERS: PCP Family Medicine; Visit Provider Obstetrics & Gynecology | DX: R10.2 Pelvic and perineal pain (principal); N83.202 Unspecified ovarian cyst, left side | CPT/HCPCS: 76830 ==

== ENCOUNTER 2022-09-29 07:03 | Outpatient (CLI) | payer SELFPAY ==
--- NOTE | 2022-09-29 07:15 | MR_ITS ---
WS: [id number] MRI OF THE ABDOMEN WITHOUT AND WITH GADOLINIUM ENHANCEMENT INDICATION: RIGHT lower quadrant pain complex cystic mass seen on ultrasound. TECHNIQUE: MRI of the abdomen without and with gadolinium enhancement. Coronal single shot S/P, axial single shot S/P, axial T2 fat sat, dual phase imaging, and post gadolinium multiplanar imaging was o btained.Pelvis is included on the post gadolinium dynamic imaging series 900, however dedicated pelvi s not performed today. FINDINGS: Slightly complex T2 hyperintense cystic lesion occupying the majority of the abdomen. This extends from the upper abdomen into lower pelvis. This measures approximately 11.2 x 28.3 x 22.8 cm w ith a few thin internal septations. Associated peripheral enhancement with enhancement of the thin in ternal septations. No enhancing nodular components. Associated peripheral compression of the surrounding abdominal organs and bowel structures. LEFT adne xa was suspected origin of the cyst on the prior ultrasound. This is not well delineated today. Perip heral enhancing RIGHT ovarian cyst measuring 3.2 x 3.4 in the low pelvis abutting the sacrum and S1 n eural foramen. Multicystic RIGHT ovary. Recommend dedicated MRI or CT of the pelvis and sacrum to exclude an occult sacral component prior to surgery. Mild to moderate RIGHT hydronephrosis with RIGHT ureterectasis presumably due to ureteral compression . No hydronephrosis LEFT kidney. Compression effacement of the inferior vena cava. MR/MR abdomen wo/w con* [id number] IMPRESSION: 1. Large slightly complex cystic mass in the abdomen extending into the pelvis suspected to originate from the LEFT ovary or adnexa on the prior ultrasound. Origin is not well delineated today. 2. Mild peripheral enhancement with enhancement of a few of the internal septa tions. No enhancing nodules. Recommend APPLIANCE PARTS COUNTER CLERK consultation for resection considera tion. Considering size findings suspicious for serous or mucinous cystic neopla sm. 3. Recommend dedicated MRI or CT of the pelvis and sacrum for better anatomic detail of the origin and to exclude unusual meningocele or sacral involvement p rior to surgery. 4. Mild to moderate hydronephrosis RIGHT kidney with mild dilatation RIGHT pro ximal ureter likely due to obstructive compression. No hydronephrosis in the LE FT kidney. 5. Compression and effacement of the inferior vena cava.
[2022-09-29] MEDS: gadobenate dimeglumine 20 mL vial IV (07:58)
== END 2022-09-29 07:04 | disposition home or self-care (01) ==
PROVIDERS: PCP Family Medicine; Visit Provider Obstetrics & Gynecology
DX: R10.31 Right lower quadrant pain (principal); R19.09 Other intra-abdominal and pelvic swelling, mass and lump; N13.30 Unspecified hydronephrosis; I87.1 Compression of vein
CPT/HCPCS: 74183; A9577

== ENCOUNTER → 2022-12-14 10:29 | Outpatient (BNVA) | payer SELFPAY | PROVIDERS: PCP Family Medicine; Visit Provider Nurse Practitioner Family | DX: R05.9 Cough, unspecified (principal); J11.1 Influenza due to unidentified influenza virus with other respiratory manifestations | CPT/HCPCS: 87400 ==

== ENCOUNTER → 2023-01-09 16:50 | Outpatient (BNVA) | payer SELFPAY | PROVIDERS: PCP Family Medicine; Visit Provider Emergency Medicine | DX: R39.9 Unspecified symptoms and signs involving the genitourinary system (principal); N39.0 Urinary tract infection, site not specified; N10 Acute pyelonephritis; Z20.2 Contact with and (suspected) exposure to infections with a predominantly sexual mode of transmission | CPT/HCPCS: 81000; 87086; 87491; 87591 ==

== ENCOUNTER → 2023-01-18 17:31 | Outpatient (BNVA) | payer SELFPAY | PROVIDERS: PCP Family Medicine; Visit Provider Nurse Practitioner | DX: R39.9 Unspecified symptoms and signs involving the genitourinary system (principal); R11.0 Nausea; Z71.1 Person with feared health complaint in whom no diagnosis is made | CPT/HCPCS: 81000; 81025; 87086; 87491; 87591 ==

== ENCOUNTER → 2023-07-30 14:18 | Outpatient (BNVA) | payer SELFPAY | PROVIDERS: PCP Family Medicine; Visit Provider Obstetrics & Gynecology | DX: R10.2 Pelvic and perineal pain (principal) | CPT/HCPCS: 76830 ==

== ENCOUNTER → 2024-01-28 08:57 | Outpatient (BNVA) | payer SELFPAY | PROVIDERS: PCP Family Medicine; Visit Provider Nurse Practitioner Women's Health | DX: Z32.01 Encounter for pregnancy test, result positive (principal); N92.6 Irregular menstruation, unspecified | CPT/HCPCS: 81025; 84702 ==

== ENCOUNTER → 2024-01-31 09:34 | Outpatient (BNVA) | payer SELFPAY | PROVIDERS: PCP Family Medicine; Visit Provider Obstetrics & Gynecology | DX: Z36.87 Encounter for antenatal screening for uncertain dates (principal); Z3A.01 Less than 8 weeks gestation of pregnancy | CPT/HCPCS: 76817 ==

== ENCOUNTER → 2024-02-25 08:59 | Outpatient (BNVA) | payer SELFPAY | PROVIDERS: PCP Family Medicine; Visit Provider Nurse Practitioner Women's Health | DX: Z34.90 Encounter for supervision of normal pregnancy, unspecified, unspecified trimester (principal) | CPT/HCPCS: 80307; 81000; 84443; 85025; 86592; 86762; 86803; 86850; 86900; 87086; 87340; 87491; 87591; 87806 ==

== ENCOUNTER → 2024-03-26 13:22 | Outpatient (BNVA) | payer SELFPAY | PROVIDERS: PCP Family Medicine; Visit Provider Obstetrics & Gynecology | DX: O99.280 Endocrine, nutritional and metabolic diseases complicating pregnancy, unspecified trimester (principal); E05.90 Thyrotoxicosis, unspecified without thyrotoxic crisis or storm | CPT/HCPCS: 81000; 88175 ==

== ENCOUNTER 2024-04-04 12:59 | Outpatient (CLI) | payer SELFPAY ==
[2024-04-04 14:40] LABS: Free T4 Free Thyroxine 1.03 ng/dL (0.82-1.77); Thyroid Stimulating Hormone 0.35 uIU/mL (0.27-4.20)
[2024-04-05 09:06] LABS: T3 Total 132 ng/dL (76-181)
== END 2024-04-04 13:00 | disposition home or self-care (01) ==
LOC: LAB 13:02
PROVIDERS: PCP Family Medicine; Visit Provider Internal Medicine
DX: O99.280 Endocrine, nutritional and metabolic diseases complicating pregnancy, unspecified trimester (principal); E05.90 Thyrotoxicosis, unspecified without thyrotoxic crisis or storm; F41.9 Anxiety disorder, unspecified; F32.A Depression, unspecified
CPT/HCPCS: 36415; 84439; 84443; 84480

== ENCOUNTER → 2024-04-14 08:10 | Outpatient (BNVA) | payer MEDICAID, SELFPAY | PROVIDERS: PCP Family Medicine; Visit Provider Nurse Practitioner Women's Health | DX: O99.280 Endocrine, nutritional and metabolic diseases complicating pregnancy, unspecified trimester (principal); E05.90 Thyrotoxicosis, unspecified without thyrotoxic crisis or storm; Z3A.00 Weeks of gestation of pregnancy not specified | CPT/HCPCS: 81000 ==

== ENCOUNTER → 2024-05-08 14:52 | Outpatient (BNVA) | payer MEDICAID, SELFPAY | PROVIDERS: PCP Family Medicine; Visit Provider Nurse Practitioner Women's Health | DX: Z34.92 Encounter for supervision of normal pregnancy, unspecified, second trimester (principal); Z3A.20 20 weeks gestation of pregnancy | CPT/HCPCS: 76805 ==

== ENCOUNTER → 2024-05-12 08:13 | Outpatient (BNVA) | payer MEDICAID, SELFPAY | PROVIDERS: PCP Family Medicine; Visit Provider Obstetrics & Gynecology | DX: Z34.90 Encounter for supervision of normal pregnancy, unspecified, unspecified trimester (principal) | CPT/HCPCS: 84315 ==

== ENCOUNTER → 2024-06-05 08:48 | Outpatient (BNVA) | payer MEDICAID, SELFPAY | PROVIDERS: PCP Family Medicine; Visit Provider Nurse Practitioner Women's Health | DX: O28.3 Abnormal ultrasonic finding on antenatal screening of mother (principal) | CPT/HCPCS: 76816 ==

== ENCOUNTER → 2024-06-06 10:03 | Outpatient (BNVA) | payer MEDICAID, SELFPAY | PROVIDERS: PCP Family Medicine; Visit Provider Obstetrics & Gynecology | DX: Z34.92 Encounter for supervision of normal pregnancy, unspecified, second trimester (principal) | CPT/HCPCS: 84315 ==

== ENCOUNTER → 2024-06-30 09:20 | Outpatient (BNVA) | payer MEDICAID, SELFPAY | PROVIDERS: PCP Family Medicine; Visit Provider Obstetrics & Gynecology | DX: Z34.93 Encounter for supervision of normal pregnancy, unspecified, third trimester (principal) | CPT/HCPCS: 82950; 84315; 85025 ==

== ENCOUNTER 2024-07-01 18:15 | Outpatient (CLI) | payer MEDICAID, SELFPAY ==
[2024-07-01] VITALS (7 sets, daily range): BP systolic 113–127; BP diastolic 58–72; PULSE 76–85; O2SAT 98; BMI 25.7
== END 2024-07-01 19:43 | disposition home or self-care (01) ==
LOC: OPOB 18:21 → OBGYN 18:21
PROVIDERS: Visit Provider Obstetrics & Gynecology
DX: O36.8190 Decreased fetal movements, unspecified trimester, not applicable or unspecified (principal); Z3A.00 Weeks of gestation of pregnancy not specified
CPT/HCPCS: 59025; 99211

== ENCOUNTER 2024-07-10 10:24 | Outpatient (CLI) | payer MEDICAID, SELFPAY ==
[2024-07-10 11:23] LABS: Thyroid Stimulating Hormone 0.79 uIU/mL (0.27-4.20)
[2024-07-10 12:21] LABS: Free T4 Free Thyroxine 0.88 ng/dL (0.82-1.77)
[2024-07-11 09:45] LABS: T3 Total 151 ng/dL (76-181)
== END 2024-07-10 10:25 | disposition home or self-care (01) ==
PROVIDERS: Visit Provider Internal Medicine
DX: O99.280 Endocrine, nutritional and metabolic diseases complicating pregnancy, unspecified trimester (principal); E05.90 Thyrotoxicosis, unspecified without thyrotoxic crisis or storm
CPT/HCPCS: 36415; 84439; 84443; 84480

== ENCOUNTER → 2024-07-14 09:05 | Outpatient (BNVA) | payer MEDICAID, SELFPAY | PROVIDERS: Visit Provider Obstetrics & Gynecology | DX: Z34.90 Encounter for supervision of normal pregnancy, unspecified, unspecified trimester (principal) | CPT/HCPCS: 84315 ==

== ENCOUNTER → 2024-07-30 08:13 | Outpatient (BNVA) | payer MEDICAID, SELFPAY | PROVIDERS: Visit Provider Obstetrics & Gynecology | DX: Z34.90 Encounter for supervision of normal pregnancy, unspecified, unspecified trimester (principal) | CPT/HCPCS: 84315 ==

== ENCOUNTER → 2024-08-13 08:14 | Outpatient (BNVA) | payer MEDICAID, SELFPAY | PROVIDERS: PCP Family Medicine; Visit Provider Nurse Practitioner Women's Health | DX: Z34.90 Encounter for supervision of normal pregnancy, unspecified, unspecified trimester (principal) | CPT/HCPCS: 84315 ==

== ENCOUNTER → 2024-08-14 12:10 | Outpatient (BNVA) | payer MEDICAID, SELFPAY | PROVIDERS: PCP Family Medicine; Visit Provider Nurse Practitioner Women's Health | DX: Z34.90 Encounter for supervision of normal pregnancy, unspecified, unspecified trimester (principal) | CPT/HCPCS: 76816 ==

== ENCOUNTER 2024-08-14 19:03 | Outpatient (CLI) | payer MEDICAID, SELFPAY ==
[2024-08-14 19:03] VITALS: BMI 27.7
[2024-08-14 19:23] VITALS: BP 114/76; PULSE 90; TEMP 35.7
[2024-08-14 19:38] VITALS: BP 105/59; PULSE 81
[2024-08-14 19:53] VITALS: BP 105/57; PULSE 74
[2024-08-14 20:08] VITALS: BP 110/58; PULSE 77
[2024-08-14 20:11] LABS: Bilirubin Urine Negative (Negative); Blood Urine Negative (Negative); Glucose Urine UA Negative (Normal); Ketones Urine Negative (Negative); Leukocyte Esterase Urine Negative (Negative); Nitrate Urine Negative (Negative); Protein Urine Trace (Negative); Specific Gravity, Urine 1.017 (1.005-1.030); Urine Appearance Cloudy (CLEAR); Urine Color Yellow (Yellow); pH Urine 7.5 (5-7)
[2024-08-14 20:16] LABS: Add Urine Microscopic? YES; Bacteria Urine None Seen /hpf; RBC Urine 0-2 /hpf (0-2); Squamous Epithelial Cell Urine 0-5 /hpf (0-5); WBC Urine 0-5 /hpf (0-5)
[2024-08-14 20:23] VITALS: BP 105/59; PULSE 62; TEMP 35.7
[2024-08-14 20:34] VITALS: BP 105/59; PULSE 62; RESP 16; O2SAT 100
== END 2024-08-14 20:34 | disposition home or self-care (01) ==
LOC: OPOB 19:08 → OBGYN 19:08
PROVIDERS: PCP Family Medicine; Visit Provider Obstetrics & Gynecology
DX: O26.899 Other specified pregnancy related conditions, unspecified trimester (principal); Z3A.00 Weeks of gestation of pregnancy not specified; R10.2 Pelvic and perineal pain
CPT/HCPCS: 59025; 81001; 99211

== ENCOUNTER → 2024-08-27 08:12 | Outpatient (BNVA) | payer MEDICAID, SELFPAY | PROVIDERS: PCP Family Medicine; Visit Provider Obstetrics & Gynecology | DX: Z34.90 Encounter for supervision of normal pregnancy, unspecified, unspecified trimester (principal) | CPT/HCPCS: 81000; 87081 ==

== ENCOUNTER → 2024-09-03 08:08 | Outpatient (BNVA) | payer MEDICAID, SELFPAY | PROVIDERS: PCP Family Medicine; Visit Provider Obstetrics & Gynecology | DX: Z34.90 Encounter for supervision of normal pregnancy, unspecified, unspecified trimester (principal) | CPT/HCPCS: 81000 ==

== ENCOUNTER → 2024-09-10 08:09 | Outpatient (BNVA) | payer MEDICAID, SELFPAY | PROVIDERS: PCP Family Medicine; Visit Provider Obstetrics & Gynecology | DX: Z34.90 Encounter for supervision of normal pregnancy, unspecified, unspecified trimester (principal) | CPT/HCPCS: 84315 ==

== ENCOUNTER 2024-09-17 08:38 | Inpatient (IN) | payer MEDICAID, SELFPAY ==
[2024-09-17] VITALS (51 sets, daily range): BP systolic 90–121; BP diastolic 50–77; PULSE 49–94; TEMP 35.7–36.5; O2SAT 98–100; BMI 27.6
[2024-09-17 09:00] LABS: Basophils # 0.1 10^3/uL (0.0-0.1); Basophils % 0.6 %; Eosinophils % 0.2 %; Hematocrit 35.6 % (36-47); Lymphocytes # 2.2 10^3/uL (0.8-4.8); Lymphocytes % 25.7 %; Mean Corpuscular HGB Conc 31.5 g/dL (30-55); Mean Corpuscular Hemoglobin 27.9 pg (27-33); Mean Corpuscular Volume 88.6 fl (85-98); Monocytes # 0.5 10^3/uL (0.2-0.9); Monocytes % 5.5 %; Neutrophils # 5.64 10^3/uL (1.8-7.7); Neutrophils % 67.5 %; Nucleated Red Blood Cells % 0 %; Platelet Count 296 10^3/cmm (157-399); Red Blood Count 4.02 10^6/uL (3.85-5.65); Red Cell Distribution Width 12.4 % (12.1-15.1); White Blood Count 8.36 10^3/uL (3.29-11.43)
--- NOTE | 2024-09-17 09:25 | PM.OBGYHP ---
Providers/Chief Complaint Admitting Physician: Sal Grissom MD Primary ORDNANCE HANDLER: Sal Grissom MD Primary Care Provider: Jamari Ashton MD Chief Complaint: elective IOL HPI ORDNANCE HANDLER History of Present Illness Pau Murray is a 24 year old female EDC September 22, 2023 At 39 w 3 d No complications Admitted for elective induction of labor No c/o + movements Present Details : 2 Para: 1 Labs Rubella: Immune RPR: Negative GBS: Negative Medications/Allergies Home Medications ?Medication ?Instructions ?Recorded ?Confirmed ?Last Taken ?Type docosahexaenoic acid 200 mg 200 mg PO DAILY 01/28/24 09/17/24 09/16/24 History capsule ( DHA) Allergies Allergy/AdvReac Type Severity Reaction Status Date / Time No Known Allergies Allergy Verified 09/10/24 08:23 PFSH ORDNANCE HANDLER PFSH: Medical History Irregular menstrual cycle History of irregular cycles--reassess No pertinent past medical history Denies diabetes, asthma, hypertension, seizures, DVT/PE PCP: Janeth Corrales Anxiety and depression Diagnosed in 2017 and initially was on medication-does not remember the name. Has not been on any medication since 2018 and feels like it was job-related. 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667 / 784.002 Balance 492.335 / 492.335 291.667 / 784.002 Weight last 48 hrs Weight 176 lb 8 oz Physical Exam Narrative: Weight 176 lbs; 5?7? VS normal General comfortable, awake, alert Lungs clear Cor: RRR FH 37 cm, cephalic Cervix: 2 / 75 / -3 / posterior Ext: no edema External monitor: heart tracing good variability, + accelerations Data 09/17/24 08:17 Results Labs OB ([facility]): Obstetrics US 08/14/24 Blood Type A Positive Today Antibody Screen Negative Today Hct, (36-47) 35.6 % L Today Hgb, (11.27-16.99) 11.20 g/dL L Today Rho(D) Type Rh positive Today Plt Count, (157-399) 296 10^3/cmm Today Hep Bs Antigen, (Nonreactive) Non-reactive 02/25/24 Hepatitis C Antibody, (Nonreactive) Non-reactive 02/25/24 Rubella IgG Antibody, (0.0-10.0) 130.8 IU/mL H 02/25/24 RPR, (Nonreactive) Nonreactive 02/25/24 HIV 1&2 Ab & HIV 1 Ag, (Non-Reactiv) Non-reactive 02/25/24 TSH, (0.27-4.20) 0.79 uIU/mL 07/10/24 Free T4, (0.82-1.77) 0.88 ng/dL 07/10/24 C.trachomatis RNA (TMA), (NOT DETECTED) Not detected 02/25/24 N.gonorrhoeae RNA (TMA), (NOT DETECTED) Not detected 02/25/24 T. vaginalis Amp RNA, (NOT DETECTED) Not detected 02/25/24 Chlamydia/GC Comment See note 02/25/24 Glucose 1 Hr 50 gm, (85-140) 95 mg/dL 06/30/24 Ser , Semi-Qnt 32828.00 mIU/mL 01/28/24 HCG, Qual, (Negative) Positive H 01/28/24 Urine Opiates Screen, (Negative) Negative ng/mL 02/25/24 Ur Barbiturates Screen, (Negative) Negative ng/mL 02/25/24 Ur Phencyclidine Scrn, (Negative) Negative ng/mL 02/25/24 Ur Amphetamines Screen, (Negative) Negative ng/mL 02/25/24 U Benzodiazepines Scrn, (Negative) Negative ng/mL 02/25/24 Urine Cocaine Screen, (Negative) Negative ng/mL 02/25/24 U Marijuana (THC) Screen, (Negative) Negative ng/mL 02/25/24 Micro Urine Specimen 02/25/24 Pap Smear Interpret See note 03/26/24 A&P Assessment and plan (1) : 39 w 3 d GBS negative Fetus reassuring Admitted for elective induction of labor Plan start Pitocin per protocol h/o x one Rh + PDMP PDMP Reviewed: Not Reviewed Attestations Medical Necessity Statement*: patient at 39 w 3 d, admitted for induction of labor Coding Level of Care Code Acute Code for Chg Fwd Diagnoses 10 weeks gestation of Z3A.10 Weeks of gestation: 10 weeks
[2024-09-17] MEDS: oxytocin 30 UNIT/500 ML BAG IV (09:28)
[2024-09-17] MEDS: dextrose 5%-lactated ringers 1,000 ML 125 ML IV (09:29)
--- NOTE | 2024-09-17 17:28 | P.ANESASSM_ITS ---
Pre-Anesthetic Assessment Height/Weight: Height 1.7 m Weight 80.059 kg Temp Pulse BP O2 Del Method 96.6 F L 49 L 105/61 Room Air 09/17/24 16:16 09/17/24 16:38 09/17/24 16:38 09/17/24 08:09 Epidural Familial anesthetic complications: None Was Beta Linsey taken within 24 hours: N/A Was Clonidine taken within 24 hours: N/A Last intake: 0700 Social No alcohol and No tobacco Exam alert, oriented x 3, clear to auscultation bilaterally and regular rate & rhythm Airway Submandibular: within normal limits Cervical ROM: within normal limits Mallampati: Class II Dentition: full History/ROS No significant history except as noted and No significant complaints Pulmonary None reported CV/HEM None reported None reported Hepatic None reported GI None reported Metabolic None reported Musc/skel None reported Neuropsych Anxiety and Depression Anesthetic Plan ASA status: 2 Anesthesia: Anesthesia Evaluation, General and Regional (specify below) Risk of > 500 ml blood loss (7ml/kg in children): Yes, adequate IV access and fluids planned Medications/Allergies Home Medications ?Medication ?Instructions ?Recorded ?Confirmed ?Last Taken ?Type docosahexaenoic acid 200 mg 200 mg PO DAILY 01/28/24 0 09/17/24 09/16/24 History capsule ( DHA) Allergies Allergy/AdvReac Type Severity Reaction Status Date / Time No Known Allergies Allergy Verified 09/10/24 08:23 Current Medications Generic Name Dose Route Start Last Admin Trade Name Freq PRN Reason Stop Dose Admin Dextrose/Lactated Ringer's 1,000 mls @ 125 mls/hr 09/17/24 08:15 09/17/24 15:45 Dextrose 5%-Lactated Ringers IV 119 mls/hr .Q8H LAXMI Infusion Oxytocin 30 unit in 500 mls @ 1 mls/hr 09/17/24 09:15 09/17/24 15:45 Pitocin IV 6 milliunit/min .Q24H LAXMI 6 mls/hr Protocol Titration 1 MILLIUNIT/MIN PFSH Anesthesia Medical History Irregular menstrual cycle History of irregular cycles--reassess No pertinent past medical history Denies diabetes, asthma, hypertension, seizures, DVT/PE PCP: Janeth Corrales Anxiety and depression Diagnosed in 2017 and initially was on medication-does not remember the name. Has not been on any medication since 2018 and feels like it was job-related. Surgical History No pertinent past surgical history Family History Grandmother Colon cancer Maternal--dx age 60's Stroke paternal Father Diabetes Hypertension Denies family history of Ovarian cancer Heart disease Hypercholesteremia Thyroid disease Social History Smoking and tobacco/nicotine status: never used tobacco/nicotine Substance/Drug Use: never Female Reproductive History : 2 Spontaneous abortions: No Data Anesthesia 09/17/24 08:17 Short CBC 09/17/24 Range/Units 08:17 WBC 8.36 (3.29-11.43) 10^3/uL Hgb 11.20 L (11.27-16.99) g/dL Hct 35.6 L (36-47) % MCV 88.6 (85-98) fl Plt Count 296 (157-399) 10^3/cmm Neut % (Auto) 67.5 % Neut # (Auto) 5.64 (1.8-7.7) 10^3/uL Blood Bank 09/17/24 08:17 Blood Type A Positive Rho(D) Type Rh positive Antibody Screen Negative
[2024-09-17] MEDS: dextrose 5%-lactated ringers 1,000 ML 119 ML IV (18:00)
[2024-09-17] MEDS: sodium chloride 0.9% 1,000 ML 999 ML IV (18:16)
[2024-09-17] MEDS: ROPivacaine syringe 100 MG/50 ML SYRINGE 13 MG EPIDURAL ×2 (19:27→22:00)
--- NOTE | 2024-09-17 19:29 | ANES.PROC ---
Anesthesia Procedures Procedure/Date: 09/17/24 Epidural: Time Out Performed: Yes Consents Signed: Procedure Consent and NPO Consent Consent: requested by attending/covering physician, from patient, risks and benefits reviewed and patient agrees to proceed Lumbar Level: L3-L4 Epidural position: sitting Epidural procedure: sterile prep of area (betadine), 1% lidocaine to numb the area (3 mLs), neg for paresthesia, test dose given, 1.5% xylocaine 1:200k epi (3 mLs/ 2 mLs), placed PCEA, no systemic response, sterile dressing applied, L.U.D. no apparent complications and 0.2% Ropiavacaine @ mls/hr (13) Additional Comments: VLAD 6cm, catheter threaded to 13cm. Negative aspiration for blood/CSF. Patient educated on AWARD MACHINE OPERATOR button
--- NOTE | 2024-09-17 19:35 | P.PN_ITS ---
PROP AND EFFECTS DESIGNER Subjective 2 Subjective: Interval history: Fetus reassuring Comfortable with epidural Pitocin at 5 mU Cervix: 3 cm / 75% / -3 Continue pitocin Labor: Station: -3 Amniotic Membrane Status: Leaking Monitor Mode: External Contraction Pattern: Irregular Vitals/I&O/Wt Last Vital Signs Temp 96.6 F L 09/17/24 16:16 Pulse 73 09/18/24 00:23 BP 130/72 09/18/24 00:23 Pulse Ox 100 09/17/24 20:03 O2 Del Method Room Air 09/17/24 08:09 09/17/24 09/17/24 09/18/24 14:59 22:59 06:59 Intake Total 492.335 / 222.354 4748.933 / 3.268 Balance 492.335 / 318.790 8852.933 / 2092.268 Weight last 48 hrs Weight 176 lb 8 oz Physical Exam 2 Urinary Catheter Management: Trivedi: Cath Placed During This Visit: yes Urinary Catheter Date of Insertion: 09/17/24 Urinary Catheter Time of Insertion: 20:02 Data 09/17/24 08:17 A&P Assessment and plan (1) : PDMP PDMP Reviewed: Not Reviewed Attestations 2 Medical Necessity Statement*: patient at 39 w 3 d, admitted for induction of labor Coding Level of Care Code Acute Code for Chg Fwd Diagnoses 10 weeks gestation of Z3A.10 Weeks of gestation: 10 weeks
[2024-09-18] VITALS (21 sets, daily range): BP systolic 93–130; BP diastolic 55–76; PULSE 46–105; RESP 16; TEMP 36.4–36.9; O2SAT 97
--- NOTE | 2024-09-18 01:25 | P.PCNOB_ITS ---
Delivery Note: Date of delivery: September 18, 2024 Pre-delivery diagnoses: 39 w 3 d induction of labor Post-delivery diagnoses: 39 w 3 d induction of labor vaginal delivery repair of first-degree perineal laceration Procedure: induction of labor vaginal delivery repair of first-degree perineal laceration Op report anesthesia: Epidural Delivering Physician: Sal Grissom MD Estimated blood loss (mL): 300 Findings: , vigorous infant Nuchal cord x three reduced Cord gases and blood obtained Normal placenta and cord 2 cm first-degree perineal laceration re paired EBL: 300 cc No complications Pre-Delivery Course: normal labor course fetus reassuring throughout Delivery: vaginal Post-Delivery Status: good History History History 2 Term 1 0 Miscarriages/Ectopic 0 Living Children 1 A&P Assessment and plan (1) Vaginal delivery: PDMP PDMP Reviewed: Not Reviewed Coding Level of Care Code Acute Code for Chg Fwd Diagnoses Vaginal delivery O80
[2024-09-18] MEDS: dextrose 5%-lactated ringers 1,000 ML 125 ML IV (02:10)
[2024-09-18] MEDS: ibuprofen 800 mg tablet PO ×3 (09:24→20:24)
[2024-09-18] MEDS: PRENATAL VIT NO.130/IRON/FOLIC 1 EACH TABLET PO (09:24)
[2024-09-18] MEDS: docusate sodium 100 mg Capsule PO ×2 (09:25→17:09)
--- NOTE | 2024-09-18 14:30 | ANE.PACU2 ---
Inpatient post-anesthesia follow up: Airway intact: Yes Vital signs: Temperature 97.5 F Pulse Rate 105 Respiratory Rate 16 Blood Pressure 113/76 Pulse Oximetry 100 Oxygen Delivery Me thod Room Air Oxygen Flow Rate Fraction of Inspir ed Oxygen Hydration adequate: Yes Nausea and vomiting: No Pain level: 1 Mental status: Baseline Epidural Start/End: Epidural Start Date: 09/17/24 Epidural Start Time: 19:06 Epidural End Date: 09/18/24 Epidural End Time: 02:00
[2024-09-18 16:42] LABS: Hematocrit 34.1 % (36-47); Mean Corpuscular Hemoglobin 27.9 pg (27-33); Mean Corpuscular Volume 87.4 fl (85-98); Mean Platelet Volume 10.8 fL (7.4-10.4); Platelet Count 255 10^3/cmm (157-399); Red Cell Distribution Width 12.6 % (12.1-15.1); White Blood Count 10.88 10^3/uL (3.29-11.43)
[2024-09-19 04:23] VITALS: BP 107/74; PULSE 61; RESP 16; TEMP 36.8; O2SAT 98
[2024-09-19 08:30] VITALS: BP 120/74; PULSE 88; RESP 18; TEMP 36.7
[2024-09-19] MEDS: docusate sodium 100 mg Capsule PO (11:02)
[2024-09-19] MEDS: PRENATAL VIT NO.130/IRON/FOLIC 1 EACH TABLET PO (11:02)
[2024-09-19] MEDS: ibuprofen 800 mg tablet PO (11:03)
--- NOTE | 2024-09-19 11:09 | PM.OBGYDC ---
Discharge Providers HUMAN SERVICES CARE SPECIALIST Date of Admission: 09/17/24 08:38 Date of Discharge: 09/19/24 Attending Provider at Admission: Sal Grissom MD Attending Provider at Discharge: Sal Grissom MD Primary Care Provider: Jamari Ashton MD Diagnoses at Discharge Discharge Diagnosis (1) Vaginal delivery: Details from hospital stay: 24-year-old female G2, P2 s/p of viable male delivered on 09/18/2024 after elective induction of labor. Labor was uncomplicated, patient's stay has been uneventful. Patient is ambulating, tolerating regular diet and voiding without difficulty. Patient is bottlefeeding. Patient is encouraged to wear a tight bra 20/11 and the risk of breast engorgement reviewed. Patient is encouraged to continue vitamins. and discharge expectations reviewed to include no heavy lifting pushing or pulling and no sexual intercourse x 6 weeks. Patient verbalizes understanding. Status: Acute Reason for Visit Reason for Visit: elective IOL Hospital Course Hospital Course See above details of hospital stay Information Peripartum Data: Delivery Method: Vaginal Laceration description: Perineal - 1st Degree complications: none Physical Exam Back/Pelvis: OTHER: Abdomen?soft, fundus firm below the umbilicus. Lochia?light. Extremity: COMMON NORMALS: normal to inspection and no clubbing, cyanosis or edema Urinary Catheter Management: Trivedi: Cath Placed During This Visit: yes, but has since been removed by the nurse Reason for Continuing Indwelling Catheter: Decision to DC Catheter Urinary Catheter Date of Insertion: 09/17/24 Urinary Catheter Time of Insertion: 20:02 Date Urinary Catheter Removed: 09/18/24 Time Urinary Catheter Discontinued: 00:53 History History History 2 Term 2 0 Miscarriages/Ectopic 0 Living Children 2 Discharge Data Studies Completed and Pending Laboratory Results WBC 10.88 10^3/uL (3.29-11.43) 09/18/24 16:35 RBC 3.90 10^6/uL (3.85-5.65) 09/18/24 16:35 Hgb 10.90 g/dL (11.27-16.99) L 09/18/24 16:35 Hct 34.1 % (36-47) L 09/18/24 16:35 MCV 87.4 fl (85-98) 09/18/24 16:35 MCH 27.9 pg (27-33) 09/18/24 16:35 MCHC 32.0 g/dL (30-55) 09/18/24 16:35 RDW 12.6 % (12.1-15.1) 09/18/24 16:35 Plt Count 255 10^3/cmm (157-399) 09/18/24 16:35 MPV 10.8 fL (7.4-10.4) H 09/18/24 16:35 Neut % (Auto) 67.5 % 09/17/24 08:17 Lymph % (Auto) 25.7 % 09/17/24 08:17 [place] % (Auto) 5.5 % 09/17/24 08:17 Eos % (Auto) 0.2 % 09/17/24 08:17 Baso % (Auto) 0.6 % 09/17/24 08:17 Neut # (Auto) 5.64 10^3/uL (1.8-7.7) 09/17/24 08:17 Lymph # (Auto) 2.2 10^3/uL (0.8-4.8) 09/17/24 08:17 [place] # (Auto) 0.5 10^3/uL (0.2-0.9) 09/17/24 08:17 Eos # (Auto) 0.0 10^3/uL (0.0-0.8) 09/17/24 08:17 Baso # (Auto) 0.1 10^3/uL (0.0-0.1) 09/17/24 08:17 Nucleated RBC % (auto) 0 % 09/17/24 08:17 Nucleated RBCs # 0.0 /100WBC 09/17/24 08:17 Blood Type A Positive 09/17/24 08:17 Rho(D) Type Rh positive 09/17/24 08:17 Antibody Screen Negative 09/17/24 08:17 Vitals Last Vital Signs Temp 98.3 F 09/19/24 04:23 Pulse 61 09/19/24 04:23 Resp 16 09/19/24 04:23 BP 107/74 09/19/24 04:23 Pulse Ox 98 09/19/24 04:23 O2 Del Method Room Air 09/19/24 04:23 Results Labs OB ([facility]): Obstetrics US 08/14/24 Blood Type A Positive 09/17/24 Antibody Screen Negative 09/17/24 Hct, (36-47) 34.1 % L 09/18/24 Hgb, (11.27-16.99) 10.90 g/dL L 09/18/24 Rho(D) Type Rh positive 09/17/24 Plt Count, (157-399) 255 10^3/cmm 09/18/24 Hep Bs Antigen, (Nonreactive) Non-reactive 02/25/24 Hepatitis C Antibody, (Nonreactive) Non-reactive 02/25/24 Rubella IgG Antibody, (0.0-10.0) 130.8 IU/mL H 02/25/24 RPR, (Nonreactive) Nonreactive 02/25/24 HIV 1&2 Ab & HIV 1 Ag, (Non-Reactiv) Non-reactive 02/25/24 TSH, (0.27-4.20) 0.79 uIU/mL 07/10/24 Free T4, (0.82-1.77) 0.88 ng/dL 07/10/24 C.trachomatis RNA (TMA), (NOT DETECTED) Not detected 02/25/24 N.gonorrhoeae RNA (TMA), (NOT DETECTED) Not detected 02/25/24 T. vaginalis Amp RNA, (NOT DETECTED) Not detected 02/25/24 Chlamydia/GC Comment See note 02/25/24 Glucose 1 Hr 50 gm, (85-140) 95 mg/dL 06/30/24 Ser , Semi-Qnt 29296.00 mIU/mL 01/28/24 HCG, Qual, (Negative) Positive H 01/28/24 Urine Opiates Screen, (Negative) Negative ng/mL 02/25/24 Ur Barbiturates Screen, (Negative) Negative ng/mL 02/25/24 Ur Phencyclidine Scrn, (Negative) Negative ng/mL 02/25/24 Ur Amphetamines Screen, (Negative) Negative ng/mL 02/25/24 U Benzodiazepines Scrn, (Negative) Negative ng/mL 02/25/24 Urine Cocaine Screen, (Negative) Negative ng/mL 02/25/24 U Marijuana (THC) Screen, (Negative) Negative ng/mL 02/25/24 Micro Urine Specimen 02/25/24 Pap Smear Interpret See note 03/26/24 Discharge Plan Discharge Patient Disposition: Home Condition: Stable Prescriptions: Continued DHA 200 mg capsule 200 mg PO DAILY Discharge Orders: Discharge Order (Routine); Ordered 09/19/24 Ordered By: Meron Gonzales Referrals: Vanessa Rai NP [Nurse Practitioner, HUMAN SERVICES CARE SPECIALIST] - 10/29/24 11:00 am Discharge Diet: Regular Discharge Activity: Increase activity as tolerated Patient Instructions: Depression (DC), Opioid Safety (DC), Preeclampsia and Eclampsia After Delivery (GEN), Hemorrhage (DC), OB Discharge Report, OB Food/Drug Interaction Guide, Opioid Safety, OB Home Care, OB Vaginal Deliveries - [facility], Abnormal Bleeding Activity Restrictions/Additional Instructions: Patient encouraged to not participate in strenuous activities, no heavy lifting pushing or pulling. No sexual intercourse x 6 weeks. Patient encouraged to continue vitamins over the next 2 to 3 months.. Assessment: S/p viable male at 39.3 weeks gestation Plan of Treatment: DC to home [facility] 6 weeks. (10/29/2024) Discharge Attestations HUMAN SERVICES CARE SPECIALIST Time Spent in Discharge Care*: less than 30 min Status at Discharge: Overall status at discharge: patient is progressing back to baseline Coding Level of Care Code Acute Code for Chg Fwd Diagnoses Vaginal delivery O80
[2024-09-19 11:30] VITALS: BP 110/67; PULSE 120; RESP 18; TEMP 36.9
== END 2024-09-19 11:40 | disposition home or self-care (01) | DRG 807 ==
LOC: OPOB 09-19 08:10
PROVIDERS: Admitting Provider Obstetrics & Gynecology; PCP Family Medicine; Visit Provider Obstetrics & Gynecology
DX: O69.81X0 Labor and delivery complicated by cord around neck, without compression, not applicable or unspecified (principal); Z37.0 Single live birth; O70.0 First degree perineal laceration during delivery; Z3A.39 39 weeks gestation of pregnancy
CPT/HCPCS: 36415; 51702; 59025; 59409; 85025; 85027; 86850; 86900; J2590; J2795; J7030; J7121; J9999

== ENCOUNTER → 2024-10-15 10:35 | Outpatient (BNVA) | payer MEDICAID, SELFPAY | PROVIDERS: PCP Family Medicine; Visit Provider Internal Medicine | DX: O99.280 Endocrine, nutritional and metabolic diseases complicating pregnancy, unspecified trimester (principal); E05.90 Thyrotoxicosis, unspecified without thyrotoxic crisis or storm; Z3A.10 10 weeks gestation of pregnancy | CPT/HCPCS: 36415; 83516; 84439; 84443; 84480; 86376; 86800 ==

== ENCOUNTER → 2024-11-17 17:50 | Outpatient (BNVA) | payer SELFPAY | PROVIDERS: PCP Family Medicine; Visit Provider Family Medicine | DX: R39.9 Unspecified symptoms and signs involving the genitourinary system (principal) | CPT/HCPCS: 81000 ==

== ENCOUNTER → 2025-01-20 11:06 | Outpatient (BNVA) | payer SELFPAY | PROVIDERS: PCP Family Medicine; Visit Provider Nurse Practitioner | DX: R39.9 Unspecified symptoms and signs involving the genitourinary system (principal) | CPT/HCPCS: 81000; 87086 ==

== ENCOUNTER 2025-04-03 14:27 | Outpatient (CLI) | payer OTHER, SELFPAY ==
--- NOTE | 2025-04-03 14:31 | XR_ITS ---
WS: [id number] Exam: XR lumbar spine 2-3V* [id number] Date/Time of Exam: 04/03/2025 2:52 PM Reason For Exam: lumbar spine tenderness DLP: No fracture. Disc spaces are preserved. Posterior elements are intact. XR/XR lumbar spine 2-3V* [id number] IMPRESSION: 1. Normal lumbar spine study.
== END 2025-04-03 14:28 | disposition home or self-care (01) ==
LOC: RAD 14:29
PROVIDERS: PCP Family Medicine
DX: M54.50 Low back pain, unspecified (principal)
CPT/HCPCS: 72100

== ENCOUNTER → 2025-04-05 16:34 | Outpatient (BNVA) | payer SELFPAY | PROVIDERS: PCP Family Medicine; Visit Provider Registered Nurse Neonatal Intensive Care | DX: R30.0 Dysuria (principal); R39.9 Unspecified symptoms and signs involving the genitourinary system | CPT/HCPCS: 81000; 87086 ==